=== PATIENT | female | born 1970 | race Caucasian/White ===

== ENCOUNTER 2017-01-06 01:37 | Emergency (ER) | payer BC ==
[~2017-01-06] VITALS: Ht 165.1 cm; Wt 82.5 kg
[2017-01-06 02:45] LABS: EOSINOPHIL (%) 2.2 % (0-5); EOSINOPHIL COUNT 0.1 K/uL (0-0.3); HEMATOCRIT 40.2 % (36.0-46.0); INSTRUMENT ABS NEUTROPHIL CT 2.9 K/uL; MCH 28.6 PG (29.0-34.0); MCHC 32.3 G/DL (30.0-36.0); MCV 88.4 FL (83-99); MEAN PLAT.VOLUME 11.1 uM^3 (9.5-12.4); MONOCYTE (%) 9.5 % (3-12); MONOCYTE COUNT 0.5 K/uL (0-0.8); NEUTROPHIL (%) 52.3 % (45-76); NEUTROPHIL COUNT 2.9 K/uL (1.8-6.4); PLATELET COUNT 207 K/uL (156-360); RBC DIS.WIDTH-CV 12.2 % (11.8-14.6); RBC DIS.WIDTH-SD 39.5 % (39-53); RED BLOOD COUNT 4.55 M/uL (3.80-5.20); WHITE BLOOD COUNT 5.5 K/uL (4.1-10.2)
[2017-01-06 02:54] LABS: CHLORIDE 106 mEq/L (99-109); POTASSIUM 3.9 mEq/L (3.7-5.4); SODIUM 142 mEq/L (136-147)
[2017-01-06 02:57] LABS: GLUCOSE 101 mg/dL (70-99)
[2017-01-06 02:58] LABS: ANION GAP 9 MEQ/L (2-14)
[2017-01-06 02:59] LABS: TOTAL BILIRUBIN 0.3 mg/dL (0.0-1.0)
[2017-01-06 03:00] LABS: ALKALINE PHOSPHATASE 49 IU/L (3-129); GFR ESTIMATE (CALCULATED) > 59 mL/min/
[2017-01-06 03:01] LABS: UREA NITROGEN (BUN) 19 mg/dL (9-23)
[2017-01-06 03:04] LABS: LIPASE 28 U/L (1.0-51.0)
[2017-01-06 03:14] LABS: ADD MIUA? YES; BILIRUBIN NEGATIVE; BLOOD NEGATIVE; COLOR YELLOW ((YELLOW)); GLUCOSE (STRIP) NEGATIVE; KETONES NEGATIVE; LEUKOCYTES SMALL; NITRITE NEGATIVE; PROTEIN (STRIP) NEGATIVE; SPECIFIC GRAVITY 1.014 (1.000-1.030); UROBILINOGEN 0.2 MG/DL (0.2-1.0)
[2017-01-06 03:31] LABS: BACTERIA 1+ /HPF; EPITHELIAL CELLS RARE /HPF; MUCUS NONE SEEN /LPF; RED BLOOD CELLS 0-5 /HPF (0-5); UCUL ADDED? NO
[2017-01-06] MEDS ORDERED: KEFLEX500 MG PO (04:38)
[2017-01-06] MEDS ORDERED: NORCO 5/3251 TABLET PO (04:38)
[2017-01-06 05:00] VITALS: BP 145/95
== END 2017-01-06 05:01 | disposition home or self-care (01) ==
LOC: EME 01:37
PROVIDERS: Emergency Medicine
DX: N39.0 Urinary tract infection, site not specified (principal); M54.9 Dorsalgia, unspecified
CPT/HCPCS: 71020; 74176; 80053; 81003; 83690; 85025; 99281; 99284

== ENCOUNTER 2017-01-07 22:35 | Emergency (ER) | payer BC ==
[~2017-01-07] VITALS: Ht 165.1 cm; Wt 98.1 kg
[~2017-01-07 22:35] MED LIST: KEFLEX500 MG PO; NORCO 5/3251 TABLET PO
[2017-01-07 23:33] LABS: HEMATOCRIT 39.3 % (36.0-46.0); MCH 28.7 PG (29.0-34.0); MCHC 32.3 G/DL (30.0-36.0); MCV 88.7 FL (83-99); MEAN PLAT.VOLUME 11.3 uM^3 (9.5-12.4); PLATELET COUNT 210 K/uL (156-360); RBC DIS.WIDTH-CV 12.2 % (11.8-14.6); RBC DIS.WIDTH-SD 39.5 % (39-53); RED BLOOD COUNT 4.43 M/uL (3.80-5.20); WHITE BLOOD COUNT 5.8 K/uL (4.1-10.2)
[2017-01-07 23:44] LABS: CHLORIDE 106 mEq/L (99-109); SODIUM 142 mEq/L (136-147)
[2017-01-07 23:45] LABS: GLUCOSE 103 mg/dL (70-99)
[2017-01-07 23:47] LABS: ANION GAP 8 MEQ/L (2-14)
[2017-01-07 23:49] LABS: ADD MIUA? YES; BILIRUBIN NEGATIVE; BLOOD NEGATIVE; COLOR COLORLESS ((YELLOW)); GLUCOSE (STRIP) NEGATIVE; KETONES NEGATIVE; LEUKOCYTES TRACE; NITRITE NEGATIVE; PROTEIN (STRIP) NEGATIVE; SPECIFIC GRAVITY 1.008 (1.000-1.030); UROBILINOGEN 0.2 MG/DL (0.2-1.0)
[2017-01-07 23:49] LABS: GFR ESTIMATE (CALCULATED) > 59 mL/min/
[2017-01-07 23:50] LABS: UREA NITROGEN (BUN) 12 mg/dL (9-23)
[2017-01-07 23:52] LABS: BACTERIA NONE SEEN /HPF; EPITHELIAL CELLS RARE /HPF; MUCUS NONE SEEN /LPF; RED BLOOD CELLS NONE SEEN /HPF (0-5); UCUL ADDED? NO; WHITE BLOOD CELLS 0-5 /HPF (0-5)
[2017-01-08] MEDS ORDERED: PERCOCET 5/31 TABLET PO (00:29)
[2017-01-08] MEDS ORDERED: FLEXERIL5 MG PO (00:29)
[2017-01-08 00:48] VITALS: BP 147/98
== END 2017-01-08 00:49 | disposition home or self-care (01) ==
LOC: EME 22:35 → RME 22:35
DX: M54.5 Low back pain (principal); H91.90 Unspecified hearing loss, unspecified ear
CPT/HCPCS: 80048; 81003; 85027; 99281; 99284